=== PATIENT | female | born 1985 | race Hispanic/Latino ===

== ENCOUNTER 2016-04-22 18:30 | Emergency (ER) | payer OTHER ==
[~2016-04-22] VITALS: Ht 165.1 cm; Wt 76.2 kg
[~2016-04-22 18:30] MED LIST: BENTYL20 MG PO; MONTELUKAST SOD10 MG PO; PHENERGAN12.5 M1 PO; PREDNISONE 20MG20 MG PO; PROAIR HFA0.09 MG/Ac; ZOFRAN4 M1 PO; ZYRTEC ALLERGY10 MG PO
--- NOTE | 2016-04-22 19:04 | ED GI/GU/ABDOMINAL COMPLAINT ---
History of Present Illness General Chief Complaint: Abdominal Pain/Flank Pain Stated Complaint: R SIDED FLANK PAIN Source: patient Exam Limitations: no limitations Vital Signs & Intake/Output Vital Signs & Intake/Output Vital Signs Date Time Temp Pulse Resp B/P Pulse O2 O2 Flow FiO2 Ox Delivery Rate 04/22 2053 97.9 67 16 117/59 100 Room Air 04/22 1835 96.8 74 20 123/78 99 Room Air Allergies Coded Allergies: No Known Allergies (04/22/16) Reconcile Medications Albuterol Sulfate (Proair Hfa) 0.09 MG/Actuation AMANDEEP 2 PUFF PRN ASTHMA ( Reported) CETIRIZINE HCL (Zyrtec) 10 MG CAPSULE 1 CAP PO DAILY ALLERGIES (Reported) Ketorolac Tromethamine 10 MG TABLET 1 TAB PO TID PRN PAIN/INFLAMMATION Levonorgestrel-Ethin Estradiol (Aviane-28 Tablet) 0.1 MG-20 MCG TABLET 1 TAB PO DAILY CONTROL (Reported) Montelukast Sodium 10 MG TABLET 1 TAB PO DAILY ASTHMA (Reported) Triage Note: TRIAGE: PT TO ER C/C BILATERAL FLANK PAIN X 1 WK, MOSTLY CONSTANT SINCE ONSET. REPORTS HAD SIMILIAR PAIN 1 MONTH AGO FOR 3 DAYS WHICH RESOLVED WITHOUT INTERVENTION. DENIES NAUSEA AT PRESENT, STATES HAD "A LITTLE BIT OF NAUSEA IN THE BEGINNING BUT NOT NOW", -VOMITING, -DIARRHEA. LNBM TODAY. -URINARY S/S. Triage Nurses Notes Reviewed? yes ? N Is pt currently ? No Onset: Abrupt Duration: getting worse, intermittent Timing: recent history Quality/Severity: sharpness, severe, stabbing Severity Numbers: 8 Activities at Onset: none Prior Abdominal Problems: similar symptoms HPI: Patient is a 30-year-old female who presents emergency room with concerns of a one-week history of bilateral flank pain that was persistent for 5 days however yesterday symptoms were relieved but today symptoms are more severe in which patient has had on relieving symptoms with ibuprofen. Patient is able tolerate by mouth with no change in symptoms. Denies any fever, chills, chest pain and arm pain jaw pain dysuria hematuria vaginal bleeding or vaginal discharge. Denies any nausea or vomiting. Patient states that approximately one month ago she had similar symptoms for 3 days which resolved. 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 (MARCIA SILVA) Past History Travel History Traveled to [place] past 21 day No Medical History Any Pertinent Medical History? see below for history Neurological: NONE EENT: NONE Cardiovascular: NONE Respiratory: asthma Gastrointestinal: NONE Hepatic: NONE Renal: NONE Musculoskeletal: NONE Psychiatric: NONE Endocrine: NONE Blood Disorders: NONE Cancer(s): NONE MOT[employer] HOT[employer]NAGER/Reproductive: NONE Surgical History Surgical History: non-contributory Psychosocial History What is your primary language Faroese Tobacco Use: Never used ETOH Use: occasional use Illicit Drug Use: denies illicit drug use Family History Hx Contributory? No (MARCIA SILVA) Review of Systems Review of Systems Constitutional: Reports: no symptoms. EENTM: Reports: no symptoms. Respiratory: Reports: no symptoms. Cardiovascular: Reports: no symptoms. GI: Reports: see HPI, abdominal pain. Genitourinary: Reports: no symptoms. Musculoskeletal: Reports: no symptoms. Skin: Reports: no symptoms. Neurological/Psychological: Reports: no symptoms. Hematologic/Endocrine: Reports: no symptoms. Immunologic/Allergic: Reports: no symptoms. All Other Systems: Reviewed and Negative (MARCIA SILVA) Physical Exam Physical Exam General Appearance: no apparent distress, alert, comfortable Gastrointestinal: normal bowel sounds, soft, gENERALIZED POINT TENDERNESS NOTED, NO REBOUND TENDERNESS NO PERITONEAL SIGNS Comments: Well-developed well-nourished person in no acute distress HEENT: Normal EENT exam, extraocular motion intact, no nystagmus. Pupils equally round and reactive to light and accommodation. Nose is atraumatic. External auditory canal and Tympanic membranes clear. Pharynx normal. No swelling or edema. Neck: Supple, no lymphadenopathy, normal range of motion without pain or tenderness Back: BIlateral CVA tenderness noted Cardiovascular: Regular rate and rhythms no murmurs rubs or gallops, normal JVP Respiratory: Chest nontender. No respiratory distress.breath sounds clear to auscultation bilaterally Extremity: No edema, no calf tenderness to palpation, normal and equal pulses. Neuro: Alert oriented x3, motor sensory normal, . Skin: No appreciable rash on exposed skin, skin is warm and dry. Psych: Mood and affect is normal, memory and judgment is normal. Core Measures ACS in differential dx? No Severe Sepsis Present: No Septic Shock Present: No (LUAN HERNANDEZ,MARCIA) Progress Differential Diagnosis: AAA, AMI, appendicitis, biliary colic, bowel obstruction , cholecystitis, diverticulitis, ectopic , endometritis, esophageal varices, gastritis, hepatitis, hernia, hemorrhoids, ischemic bowel, inflamm bowel dis, intrauterine , kidney stone, Ping-Ekta tear, ovarian cyst , ovarian torsion, pancreatitis, PID/cervicitis, peptic ulcer, PUD/GERD, perforated viscous, SBO, threatened AB, UTI/pyelo Plan of Care: Orders Procedure Date/time Status LIPASE 04/22 1927 Complete COMPREHENSIVE METABOLIC PANEL 04/22 1927 Complete CBC WITHOUT DIFFERENTIAL 04/22 1927 Complete AMYLASE 04/22 1927 Complete URINE 04/22 1900 Complete URINALYSIS 04/22 1900 Complete Laboratory Tests 04/22/161939: Anion Gap 12, Estimated GFR > 60, BUN/Creatinine Ratio 28.3 H, Glucose 101 H, Calcium 9.1, Total Bilirubin 0.5, AST 19, ALT 23, Alkaline Phosphatase 52, Total Protein 7.3, Albumin 4.1, Globulin 3.2, Albumin/Globulin Ratio 1.3, Amylase 45, Lipase 83, CBC w Diff NO MAN DIFF REQ, RBC 4.49, MCV 84.8, MCH 29.2, RDW 13.5, MPV 8.5, Gran % 62.6, Lymphocytes % 23.9, Monocytes % 6.5, Eosinophils % 6.7 H, Basophils % 0.3, Absolute Granulocytes 5.9, Absolute Lymphocytes 2.2, Absolute Monocytes 0.6, Absolute Eosinophils 0.6, Absolute Basophils 0, PUBS MCHC 34.4 04/22/16 1936: Urine Color YEL, Urine Clarity CLEAR, Urine pH 6.0, Ur Specific Moro 1.025, Urine Protein NEG, Urine Ketones NEG, Urine Nitrite NEG, Urine Bilirubin NEG, Urine Urobilinogen 0.2, Ur Leukocyte Esterase NEG, Ur Microscopic SEDIMENT EXAMINED, Urine RBC 5-10 H, Urine WBC 1-3 H, Ur Epithelial Cells FEW, Urine Hemoglobin LARGE H, Urine Glucose NEG, Urine Test NEGATIVE Patient after history and physical had requested CT scan to "find out what it is " 04/22/2016 8:14:42 PM reevaluation the patient patient had improvement of her pain after ketorolac. CT scan was unremarkable for acute process however due to patient's flank pain and hematuria noted in urine analysis that there is suspicion of renal colic. Patient was strongly advised to follow up with urologist this week if symptoms still persist and patient will comply. Upon discharge patient was given CT scan copies and blood work and urinalysis copies for follow-up and patient had no questions and will comply with discharge instructions. (LUAN HERNANDEZ,MARCIA) Diagnostic Imaging: Viewed by Me: CT Scan. Radiology Impression: no acute abnormality Initial ED EKG: none Comments: PATIENT: SAHIL DE LOS SANTOS PRESENT AGE: 30 PATIENT ACCOUNT NO: [id number] : 86 LOCATION: [facility] ORDERING PHYSICIAN: MARCIA HERNANDEZ SERVICE DATE: 04/22/16 EXAM TYPE: CAT - CT ABD & PELVIS W/O IV CONTRAS EXAMINATION: CT ABDOMEN AND PELVIS WITHOUT CONTRAST CLINICAL INFORMATION: Bilateral flank pain. COMPARISON: None. TECHNIQUE: Multidetector volumetric imaging was performed from the superior aspect of the liver through the pubic symphysis. Sagittal and coronal reformatted images were obtained on the technologist's workstation. DLP: 321 mGy-cm. FINDINGS: LUNG BASES: The visualized lung bases are unremarkable. LIVER, GALLBLADDER, AND BILIARY TREE: The liver is normal in size, shape, and attenuation. No focal hepatic lesion or biliary ductal dilatation is present. The gallbladder is decompressed. No cholelithiasis. PANCREAS: Unremarkable. SPLEEN: Unremarkable. ADRENAL GLANDS: Unremarkable. KIDNEYS AND URETERS: The kidneys are normal in size, shape, and attenuation. No hydronephrosis, hydroureter, or calculi seen. No perinephric stranding. BLADDER: Unremarkable. GASTROINTESTINAL TRACT: The small and large bowel are unremarkable. The appendix is top normal in size of 0.7 cm without periappendiceal stranding; foci of intraluminal gas are demonstrated. ABDOMINAL WALL: No significant hernia is appreciated. LYMPH NODES: No pathologically enlarged lymph nodes are demonstrated. VASCULAR: Unremarkable. PELVIC VISCERA: Unremarkable. OSSEOUS STRUCTURES: No acute osseous abnormalities. T12 limbus vertebra. IMPRESSION: 1. No CT explanation for the patient's bilateral flank pain. 2. No hydronephrosis or renal/ureteral calculi. 3. No CT evidence of appendicitis. Although the appendix is top normal in caliber at 0.7 cm, the appendix is partially aerated and there is no periappendiceal inflammatory stranding. DICTATED BY: NATASHA PERRIN MD (MARCIA SILVA) Departure Departure Disposition: HOME OR SELF CARE Condition: Stable Clinical Impression Primary Impression: Bilateral renal colic Secondary Impressions: Hematuria Referrals: MAAME BILLINGSLEY,FRANCISCO UMAÑA MD,ALLYSSA (PCP/Family) Additional Instructions: As discussed for pain and inflammation begin the prescription of ketorolac as directed. If symptoms worsen or if YOU develop a concerning symptom return to emergency room. If symptoms continue tomorrow please follow up with urologist Dr. Boyle for further evaluation treatment. PRESCRIPTIONS of ketorolac awaiting at [facility] pharmacy Departure Forms: Customer Survey General Discharge Information Prescriptions: Current Visit Scripts Ketorolac Tromethamine 1 TAB PO TID PRN PAIN/INFLAMMATION #15 TAB (MARCIA SILVA) PA/SLASHER SAWYER Co-Sign Statement Statement: ED Attending supervision documentation- [] I saw and evaluated the patient. I have also reviewed all the pertinent lab results and diagnostic results. I agree with the findings and the plan of care as documented in the PA's/SLASHER SAWYER's documentation. [X] I have reviewed the ED Record and agree with the PA's/SLASHER SAWYER's documentation. [] Additions or exceptions (if any) to the PAs/SLASHER SAWYER's note and plan are summarized below: [] (MICHEAL BILLINGSLEY,MANI Fuller)
[2016-04-22] MEDS ORDERED: AVIANE-28 TABL1 EACH PO (19:12)
[2016-04-22 19:55] LABS: ABSOLUTE BASOPHIL COUNT 0 /CUMM (0.0-0.2); ABSOLUTE EOSINOPHIL COUNT 0.6 /CUMM (0.0-0.7); ABSOLUTE GRANULOCYTE CT 5.9 /CUMM (1.4-6.5); ABSOLUTE LYMPH COUNT 2.2 /CUMM (1.2-3.4); ABSOLUTE MONOCYTE COUNT 0.6 /CUMM (0.10-0.60); BASOPHIL % 0.3 % (0.0-2.0); EOSINOPHIL % 6.7 % (0-5); GRANULOCYTE % 62.6 % (42.2-75.2); HEMATOCRIT 38.1 % (37-47); MEAN CORPUSCULAR HGB 29.2 PG (27.0-31.0); MEAN CORPUSCULAR HGB CONC 34.4 G/DL (33.0-37.0); MEAN CORPUSCULAR VOLUME 84.8 FL (81.0-99.0); MEAN PLATELET VOLUME 8.5 FL (7.4-10.4); PLATELET COUNT 263 /CUMM (130-400); RBC DISTRIBUTION WIDTH 13.5 % (11.5-14.5); RED BLOOD CELL CT 4.49 /CUMM (4.20-5.40); WHITE BLOOD CELL COUNT 9.4 /CUMM (4.8-10.8)
--- NOTE | 2016-04-22 20:51 | CT SCAN REPORT ---
EXAMINATION: CT ABDOMEN AND PELVIS WITHOUT CONTRAST CLINICAL INFORMATION: Bilateral flank pain. COMPARISON: None. TECHNIQUE: Multidetector volumetric imaging was performed from the superior aspect of the liver through the pubic symphysis. Sagittal and coronal reformatted images were obtained on the technologist's workstation. DLP: 321 mGy-cm. FINDINGS: LUNG BASES: The visualized lung bases are unremarkable. LIVER, GALLBLADDER, AND BILIARY TREE: The liver is normal in size, shape, and attenuation. No focal hepatic lesion or biliary ductal dilatation is present. The gallbladder is decompressed. No cholelithiasis. PANCREAS: Unremarkable. SPLEEN: Unremarkable. ADRENAL GLANDS: Unremarkable. KIDNEYS AND URETERS: The kidneys are normal in size, shape, and attenuation. No hydronephrosis, hydroureter, or calculi seen. No perinephric stranding. BLADDER: Unremarkable. GASTROINTESTINAL TRACT: The small and large bowel are unremarkable. The appendix is top normal in size of 0.7 cm without periappendiceal stranding; foci of intraluminal gas are demonstrated. ABDOMINAL WALL: No significant hernia is appreciated. LYMPH NODES: No pathologically enlarged lymph nodes are demonstrated. VASCULAR: Unremarkable. PELVIC VISCERA: Unremarkable. OSSEOUS STRUCTURES: No acute osseous abnormalities. T12 limbus vertebra. IMPRESSION: 1. No CT explanation for the patient's bilateral flank pain. 2. No hydronephrosis or renal/ureteral calculi. 3. No CT evidence of appendicitis. Although the appendix is top normal in caliber at 0.7 cm, the appendix is partially aerated and there is no periappendiceal inflammatory stranding.
[2016-04-22 20:54] VITALS: BP 117/59
[2016-04-22] MEDS ORDERED: KETOROLAC TROME10 M1 PO (21:05)
== END 2016-04-22 21:16 ==
LOC: ERH 18:30
PROVIDERS: Physician Assistant
DX: N23 Unspecified renal colic (principal)
CPT/HCPCS: 74176; 81001; 81025; 96372; J1885